=== PATIENT | female | born 1990 ===

== ENCOUNTER 2019-09-18 21:30 | Outpatient (CLI) | payer OTHER, MEDICAID ==
[~2019-09-18] VITALS: Ht 157.5 cm; Wt 79.3 kg
--- NOTE | 2019-09-18 21:40 | NUR ---
ABDIAZIZ EDWARDS presented to unit via ambulation from ED, accompanied by SO, with c/o CONTRACTIONS. ABDIAZIZ EDWARDS weighed, gowned, voided, and to bed. EFHM and TOCO applied, VS taken. ABDIAZIZ EDWARDS oriented to bed controls, call light, TV, heat, and A/C controls.
[2019-09-18 21:53] VITALS: BP 118/73
[2019-09-18 21:56] VITALS: BP 118/73
--- NOTE | 2019-09-18 22:47 | NUR ---
Dr. Mohr called and updated on pt's arrival and c/o contractions throughout day rating 6/10 on pain scale. Pt is able to talk with contractions. pt states was seen in clinic today and had sve by dr. mohr. No change with second exam by this RN. Pt cont to contract every 1-2min with some irritability noted. VSS, fhr pattern discussed as well. See flow sheet. Will cont to monitor for 30-45 more minutes and recheck.
[2019-09-18 23:00] VITALS: BP 121/74
[2019-09-18 23:05] LABS: BILIRUBIN,URINE NEGATIVE (NEGATIVE); CLARITY,URINE CLEAR; COLOR,URINE YELLOW; GLUCOSE, URINE (UA) NEGATIVE (NEGATIVE); KETONES,URINE TRACE (NEGATIVE); LEUKOCYTE ESTERASE ,URINE NEGATIVE (NEGATIVE); NITRITE,URINE NEGATIVE (NEGATIVE); PH,URINE 5.5 (5-9); PROTEIN,URINE NEGATIVE (NEGATIVE)
[2019-09-18 23:31] LABS: BACTERIA,URINE TRACE /HPF; SQUAMOUS EPITHELIAL CELL,UR 0-2 /HPF; WBC,URINE RARE /HPF
[2019-09-18 23:38] VITALS: BP 121/74
--- NOTE | 2019-09-18 23:43 | NUR ---
Discharge instructions read and reviewed with pt, pt verbalized understanding.
--- NOTE | 2019-09-18 23:50 | NUR ---
Pt ambulated off unit with s.o.
--- NOTE | 2019-09-19 07:51 | Physician Query-Final Dx ---
ALEXIS VALVERED 09/19/19 0751: Clinic Account Progress/Dx Physician Query: Please give diagnosis Please give # weeks gestation Date of Service Sep 18, 2019 at 21:30 CANDY DARLING MD 09/19/19 1739: Clinic Account Progress/Dx DIAGNOSIS: Diagnosis Contractions at term Third trimester 40 week gestation ALEXIS VALVERDE Sep 19, 2019 07:51 CANDY DARLING MD Sep 19, 2019 17:39
== END 2019-09-18 23:50 | disposition home or self-care (01) ==
LOC: WSo 21:30 → LDRP 21:30 → WSo 23:50
PROVIDERS: ATTEND Family Medicine
DX: O62.9 Abnormality of forces of labor, unspecified (principal); Z3A.40 40 weeks gestation of pregnancy
CPT/HCPCS: 81000; 87088; 99213

== ENCOUNTER 2019-09-19 03:13 | Inpatient (IN) | payer OTHER, MEDICAID ==
[~2019-09-19] VITALS: Ht 157.5 cm; Wt 79.3 kg
[2019-09-19] VITALS (35 sets, daily range): BP systolic 89–114; BP diastolic 50–69
--- NOTE | 2019-09-19 03:20 | NUR ---
ABDIAZIZ EDWARDS presented to unit via w/c from ED, accompanied by so, with c/o CONTRACTIONS,PRESSURE,FLUID LEAKAGE. ABDIAZIZ EDWARDS weighed, gowned, voided, and to bed. EFHM and TOCO applied, VS taken. ABDIAZIZ EDWARDS oriented to bed controls, call light, TV, heat, and A/C controls.
--- NOTE | 2019-09-19 03:28 | NUR ---
SVE 6 cm by Adelfo Ortiz RN, Dr Mohr called and pt made inpt.
[2019-09-19] MEDS ORDERED: D5 LR IV SOLUTION 1,000 ML IV SCH (03:33)
--- NOTE | 2019-09-19 03:43 | NUR ---
Sinan NOGUEIRA called with no answer, [phone] still no response, warehouse manager called and back up called in.
[2019-09-19] MEDS ORDERED: MINERAL OIL CONCENTRATE 99.9% 15 ML UDC TOP PRN (03:45)
[2019-09-19 03:50] LABS: BASOPHILS % (AUTO) 0 % (0-10); EOSINOPHILS % (AUTO) 0 % (0-10); HEMATOCRIT 40 % (35-52); HEMOGLOBIN 13.7 G/DL (11.5-16.0); LYMPHOCYTES # (AUTO) 2.6 X 10^3 (1.0-4.0); LYMPHOCYTES % (AUTO) 13 % (12-44); MEAN CORPUSCULAR HEMOGLOBIN 30 PG (25-34); MEAN CORPUSCULAR HGB CONC 34 G/DL (32-36); MEAN CORPUSCULAR VOLUME 88 FL (80-99); MEAN PLATELET VOLUME 11.9 FL (7.4-10.4); MONOCYTES # (AUTO) 0.9 X 10^3 (0.0-1.0); MONOCYTES % (AUTO) 5 % (0-12); NEUTROPHILS # (AUTO) 15.6 X 10^3 (1.8-7.8); NEUTROPHILS % (AUTO) 82 % (42-75); PLATELET COUNT 218 10^3/uL (130-400); RED CELL DISTRIBUTION WIDTH 13.8 % (10.0-14.5); WHITE BLOOD COUNT 19.1 10^3/uL (4.3-11.0)
[2019-09-19] MEDS ORDERED: OXYTOCIN/NORMAL SALINE 500 ML IV ONE ×2 (03:50→06:35)
[2019-09-19] MEDS ORDERED: SUFENTA 0.6MCG/ML BUPIVA 0.125 100 ML ONE (03:55)
[2019-09-19] MEDS ORDERED: BUPIVACAINE 0.25% 30 ML (SENSORCAINE) VIAL ONE (04:16)
[2019-09-19] MEDS ORDERED: fentaNYL INJECTION 100 MCG/2 ML AMP ONE (04:16)
--- NOTE | 2019-09-19 04:35 | History & Physical-OB ---
OB - Chief Complaint & HPI Date/Time Date of Admission: Date of Admission: Sep 19, 2019 at 03:30 Date seen by a Provider: Sep 19, 2019 Time Seen by a Provider: 04:29 Chief Complaint/History OB-Reason for Admission/Chief: Onset of Labor (ctxs started at 4 PM) Hx : 3 Hx Para: 1 Expected Date of Delivery: Sep 18, 2019 Gestational Age in Weeks: 40 Gestational Age in Days: 1 History of Labs Rub Imm HepB/RPR/HIV NR GC/Chyl GBS neg Allergies and Home Medications Allergies Coded Allergies: No Known Drug Allergies (Unverified , 09/18/19) Home Medications No Active Prescriptions or Reported Meds Patient Home Medication List Home Medication List Reviewed: Yes OB - History Hx of Present Care: Yes Ultrasounds: Normal mid trimester US Obstetrical Complications: None Medical Complications: None Obstetrical History Hx : 3 Hx Para: 1 Hx # Term Pregnancies: 1 Number of Living Children: 1 Hx Total # of Abortions (Spona: 1 Patient Past Medical History None Social History/Family History HIV/AIDS: No Recent Infectious Disease Expo: No Sexually Transmitted Disease: No Alcohol Use: Denies Use Recreational Drug Use: No Smoking Cessation: Never smoker 2nd Hand Smoke Exposure: No Immunizations Tetanus Booster (TDap): Less than 5yrs Date of Influenza Vaccine: Jun 18, 2019 Rubella: immune RPR/VDRL: Negative GBS Status: Negative HBsAG: Negative OB - Admission Exam Physical Exam Vitals: Vital Signs 09/19/19 09/19/19 03:49 03:50 Temp 36.6 Pulse 101 Resp 20 B/P (MAP) 113/64 (80) Pulse Ox 100 O2 Delivery Room Air HEENT: NCAT Heart: Rhythm Normal Lungs: Clear Abdomen: Gravid Cervical Dilatation: 6cm Effacement: 100% Membranes: Intact Accelerations: Accelerations Present Decelerations: No Decelerations Short Term Variability: Present Frequency of Contractions: 2-3 Intensity: Moderate Labs Laboratory Tests Test 09/19/19 03:35 Range/Units White Blood Count 19.1 H 4.3-11.0 10^3/uL Red Blood Count 4.54 4.35-5.85 10^6/uL Hemoglobin 13.7 11.5-16.0 G/DL Hematocrit 40 35-52 % Mean Corpuscular Volume 88 80-99 FL Mean Corpuscular Hemoglobin 30 25-34 PG Mean Corpuscular Hemoglobin Concent 34 32-36 G/DL Red Cell Distribution Width 13.8 10.0-14.5 % Platelet Count 218 130-400 10^3/uL Mean Platelet Volume 11.9 H 7.4-10.4 FL Neutrophils (%) (Auto) 82 H 42-75 % Lymphocytes (%) (Auto) 13 12-44 % Monocytes (%) (Auto) 5 0-12 % Eosinophils (%) (Auto) 0 0-10 % Basophils (%) (Auto) 0 0-10 % Neutrophils # (Auto) 15.6 H 1.8-7.8 X 10^3 Lymphocytes # (Auto) 2.6 1.0-4.0 X 10^3 Monocytes # (Auto) 0.9 0.0-1.0 X 10^3 Eosinophils # (Auto) 0.0 0.0-0.3 10^3/uL Basophils # (Auto) 0.0 0.0-0.1 10^3/uL OB - Assessment/Plan/Diagnosis Assessment Assessment: active labor Admission Dx Active Labor Term 40 week gestation Admission Status: Inpatient Order (span 2 midnights) Reason for Inpatient Admission: labor Plan Other Plan 29 yo @ 40.1 wga here for Active labor, ctxs started at 4pm Plan - Patient desires Epidural - AROM after Epidural - GBS Neg Copy Copies To 1: CANDY DARLING MD, HOLLY R MD Sep 19, 2019 04:34
[2019-09-19] MEDS ORDERED: LACTATED RINGERS 1,000 ML IV ONE (04:49)
[2019-09-19] MEDS ORDERED: NALOXONE 0.4 MG/ML 1 ML (NARCAN) VIAL IV PRN (05:00)
[2019-09-19] MEDS ORDERED: diphenhydrAMINE 50 MG/ML INJ (BENADRYL) IV PRN (05:00)
[2019-09-19] MEDS ORDERED: ONDANSETRON 4 MG/2 ML (SDV) Z0FRAN IV PRN (05:00)
[2019-09-19] MEDS ORDERED: CATHETER FLUSH 10 ML SYR IV PRN (05:00)
[2019-09-19] MEDS ORDERED: EPIDURAL (SUFENTA 0.6MCG/ML BUPIVA 0.125%) 100 ML BAG EPI SCH (05:00)
[2019-09-19] MEDS ORDERED: MINERAL OIL CONCENTRATE 99.9% 15 ML UDC ONE (05:03)
[2019-09-19] MEDS ORDERED: CATHETER FLUSH 10 ML SYR IV SCH ×2 (06:00→14:00)
--- NOTE | 2019-09-19 06:20 | NUR ---
repair completed, ffu/2 scant rubra noted, pericare given, pt back to bed and out of stirrups. s.o. remains at bedside.
--- NOTE | 2019-09-19 06:30 | NUR ---
ffu/2 scant rubra noted. pericare given.
--- NOTE | 2019-09-19 06:34 | OB Labor & Delivery Record ---
Vag Delivery Note Vag Delivery Note Date of Delivery: 09/19/19 Preoperative Diagnosis: Naomi Ortiz is a (29 /Para 3 / 1, Gestational Age (wks)40.1 here in active labor Postoperative Diagnosis: Same Surgeon: CANDY DARLING Tire Trucker: None Anesthesia: Epidural Delivery Type: 0604 Findings: Viable female infant, apgars 8/9, weight 6#15, 3140 Lacerations: 1st degree laceration Intact placenta with 3 vessel cord. No nuchal cord, body cord or shoulder dystocia Small placenta with meconium staining Estimated Blood Loss: 100 ml Complications: None Condition: Stable Description of Procedure: The patient is a 29 year old female who presented in active labor. She was admitted and informed consent was obtained. Her labor course was remarkable for meconium fluid. She progressed to complete dilatation and began to push. She was then set up for delivery. The 's head was delivered atraumatically in the ROSIE position. The shoulders and remainder of the 's body were then delivered without difficulty. Upon delivery, the head was held below the level of the perineum and the mouth and nares were bulb suctioned. The cord was doubly clamped and cut by FOB and the was attended to on maternal abdomen by the pediatric staff. An intact placenta with 3-vessel cord delivered via Deandre and there was found to be minimal bleeding.~ Vigorous fundal massage was performed and the fundus was found to be firm. IV oxytocin was given. Examination of the vagina and perineum revealed a 1st degree laceration repaired in the usual fashion with 3-0 Reped suture. Following the repair, sponge, instrument and needle counts were correct. Mom and baby were both in stable condition in the labor suite. Vitals - Labs Vital Signs - I&O Vital Signs Date Time Temp Pulse Resp B/P (MAP) Pulse Ox O2 Delivery O2 Flow Rate FiO2 09/19/19 05:07 90 18 99/62 (74) 99 09/19/19 05:00 82 18 99/61 (74) 99 09/19/19 04:58 80 18 99/58 (72) 99 09/19/19 04:55 88 18 108/63 (78) 99 09/19/19 04:50 88 18 100/63 (75) 99 09/19/19 04:47 93 18 104/60 (75) 99 09/19/19 04:45 89 18 103/60 (74) 99 09/19/19 04:40 85 18 100/66 (77) 98 09/19/19 04:37 83 18 106/68 (81) 98 09/19/19 04:34 87 18 103/66 (78) 98 09/19/19 04:30 78 18 107/66 (80) 98 09/19/19 04:23 96 18 104/64 (77) 97 09/19/19 04:20 85 18 112/69 (83) 09/19/19 03:50 36.6 101 20 100 Room Air 09/19/19 03:49 36.6 101 20 113/64 (80) Room Air 09/19/19 03:30 36.6 101 20 113/64 (80) Room Air 09/19/19 03:22 36.6 101 20 Room Air Labs Laboratory Tests 09/19/19 03:35: White Blood Count 19.1H, Red Blood Count 4.54, Hemoglobin 13.7, Hematocrit 40, Mean Corpuscular Volume 88, Mean Corpuscular Hemoglobin 30, Mean Corpuscular Hemoglobin Concent 34, Red Cell Distribution Width 13.8, Platelet Count 218, Mean Platelet Volume 11.9H, Neutrophils (%) (Auto) 82H, Lymphocytes (%) (Auto) 13, Monocytes (%) (Auto) 5, Eosinophils (%) (Auto) 0, Basophils (%) (Auto) 0, Neutrophils # (Auto) 15.6H, Lymphocytes # (Auto) 2.6, Monocytes # (Auto) 0.9, Eosinophils # (Auto) 0.0, Basophils # (Auto) 0.0 CANDY DARLING MD Sep 19, 2019 06:34
[2019-09-19] MEDS ORDERED: OXYTOCIN/NORMAL SALINE 500 ML IV SCH (06:35)
[2019-09-19] MEDS ORDERED: WITCH HAZEL(TUCKS) 40 EA JAR TOP PRN (06:45)
[2019-09-19] MEDS ORDERED: MEASLES,MUMPS,RUBELLA 1 EA INJ SQ ONE (06:45)
[2019-09-19] MEDS ORDERED: BENZOCAINE/MENTHOL (DERMOPLAST) 56 ML CAN TP PRN (06:45)
--- NOTE | 2019-09-19 06:45 | NUR ---
FF u/2 small lochia jodie noted, plan of care reviewed with pt. pt able to move both legs will cont to assess before transferring to pp room.
--- NOTE | 2019-09-19 07:00 | NUR ---
ffu/2 scant rubra noted, pt holding infant.
--- NOTE | 2019-09-19 07:15 | NUR ---
FF u/2 moderate lochia rubra noted. pt denies pain, s.o. remains at bedside.
--- NOTE | 2019-09-19 07:30 | NUR ---
PERICARE WITH PAD CHANGE. FF U/1. VAG FLOW LT/MOD RUBRA. BLADDER FILLING.
--- NOTE | 2019-09-19 07:35 | NUR ---
EPIDURAL CATHETER D/C'ED. SITE CLEAR. DENIES ANY PAIN. MOVING LEGS WELL. IV TO SALINE LOCK. SITE CLEAR.
--- NOTE | 2019-09-19 07:50 | NUR ---
NURSERY RN IN TO ASSIST PT WITH .
--- NOTE | 2019-09-19 08:24 | NUR ---
UP TO THE BATHROOM. LARGE VOID. MARIO CARE PERFORMED WITH PAD AND UNDERWEAR APPLIED. DERMA PLAST AND TUCKS APPLIED. AMBULATED WITHOUT PROBLEMS AND ABLE TO BEAR WEIGHT WITHOUT PROBLEMS.
--- NOTE | 2019-09-19 09:30 | NUR ---
TRANSFERRED TO ROOM 309 VIA W/C IN STABLE CONDITION. SECOND RN PUSHING CRIB AND SPOUSE BRINGING BELONGINGS. ORIENTED TO SURROUNDINGS, CALL LIGHT OPERATION, BED CONTROLS, INFORMATION PAPERS, AND DIET/MENU PROCEDURE.
--- NOTE | 2019-09-19 10:00 | NUR ---
FF U/1. VAG FLOW LT/MOD RUBRA.
--- NOTE | 2019-09-19 11:00 | NUR ---
CONTINUES TO CARE FOR IN ROOM. GOOD INTERACTION NOTED.
[2019-09-19] MEDS: IBUPROFEN 600 MG (MOTRIN) TAB PO SCH ×2 (11:34→18:24)
[2019-09-19] MEDS: DOCUSATE SODIUM 100 MG (COLACE) CAP PO SCH (11:34)
--- NOTE | 2019-09-19 11:35 | NUR ---
ASSISTED WITH LATCH. PT C/O CRAMPING. MOTRIN GIVEN. SPOUSE AT BEDSIDE. UP TO THE BATHROOM. + VOID. AMBULATING WITHOUT PROBLEMS. FF U/1. VAG FLOW LT/MOD RUBRA.
[2019-09-19] MEDS: ACETAMINOPHEN 500 MG TAB (TYLENOL) PO SCH (13:42)
--- NOTE | 2019-09-19 13:50 | NUR ---
IV D/C'E. SITE CLEAR.
--- NOTE | 2019-09-19 14:00 | NUR ---
INFANT TO NURSERY FRO BATH. PT UP TO GET HER SHOWER.
--- NOTE | 2019-09-19 15:50 | NUR ---
DENIES ANY PAIN AT THIS TIME.
--- NOTE | 2019-09-19 18:15 | NUR ---
EATING DINNER. LOTS OF VISITORS AT BEDSIDE.
[2019-09-20 00:40] VITALS: BP 107/60
[2019-09-20] MEDS: IBUPROFEN 600 MG (MOTRIN) TAB PO SCH ×3 (00:40→13:24)
[2019-09-20] MEDS: DOCUSATE SODIUM 100 MG (COLACE) CAP PO SCH ×2 (00:40→09:03)
[2019-09-20 05:32] LABS: BASOPHILS % (AUTO) 0 % (0-10); EOSINOPHILS # (AUTO) 0.1 10^3/uL (0.0-0.3); EOSINOPHILS % (AUTO) 1 % (0-10); HEMATOCRIT 35 % (35-52); HEMOGLOBIN 11.8 G/DL (11.5-16.0); LYMPHOCYTES # (AUTO) 3.5 X 10^3 (1.0-4.0); LYMPHOCYTES % (AUTO) 23 % (12-44); MEAN CORPUSCULAR HEMOGLOBIN 31 PG (25-34); MEAN CORPUSCULAR HGB CONC 34 G/DL (32-36); MEAN CORPUSCULAR VOLUME 91 FL (80-99); MEAN PLATELET VOLUME 12.1 FL (7.4-10.4); MONOCYTES % (AUTO) 7 % (0-12); NEUTROPHILS # (AUTO) 10.4 X 10^3 (1.8-7.8); NEUTROPHILS % (AUTO) 69 % (42-75); PLATELET COUNT 183 10^3/uL (130-400); RED CELL DISTRIBUTION WIDTH 13.8 % (10.0-14.5)
[2019-09-20 05:44] VITALS: BP 103/54
[2019-09-20] MEDS: ACETAMINOPHEN 500 MG TAB (TYLENOL) PO SCH (09:03)
[2019-09-20 09:05] VITALS: BP 104/59
--- NOTE | 2019-09-20 09:05 | NUR ---
initial shift assessment completed, see interventions for further.
--- NOTE | 2019-09-20 10:10 | NUR ---
initial shift assessment completed, see interventions for further. POC reviewed. Addendum: 09/20/19 at 1356 by RG HART RN error- here. dismissal orders received.
--- NOTE | 2019-09-20 10:10 | NUR ---
dismissal instructions given, verbalizes understanding. reviewed follow up appointment and dismissal medications. signature page signed, placed on chart. Addendum: 09/20/19 at 1355 by RG HART RN error- wrong time. correct entry time is 1327.
[2019-09-20] MEDS ORDERED: PREN-142 PO ×2 (10:14)
[2019-09-20] MEDS ORDERED: IBUP-844 PO ×2 (10:14)
--- NOTE | 2019-09-20 10:15 | Discharge Instructions ---
Discharge Inst-Women's Serv Depart Medications New, Converted or Re-Newed RX: Transmitted to Pharmacy New Medications: Vit No.124/Iron/FA ( Vitamin Tablet) 1 Each Tablet 1 EACH PO DAILY, #30 TAB 11 Refills Ibuprofen (Ibu) 600 Mg Tablet 600 MG PO Q6HR PRN for PAIN-MODERATE (5-7), #60 TAB 0 Refills Follow Up/Instructions Goal/Follow Up: Follow up with Dr. Mohr in 6 weeks for visit. Activity Activity: Activity as Tolerated (avoid strenuous activity x 2 weeks) Driving Instructions: You May Drive NO SMOKING: NO SMOKING Nothing Inside Vagina: No Douching, No Portis, No Tampons Diet Discharge Diet: Regular Diet Symptoms to Report to : Swelling Increased, Bleeding Excessive, Fever Over 101 Degrees F, Pain/Pressure in Chest, Cramps in Feet or Legs, Vaginal Discharge Foul, Dizziness/Fainting, Shortness of Breath For Any Problems or Questions: Contact Your Physician Copies To 1: CANDY MOHR MD, BETHANY N MD Sep 20, 2019 10:15
--- NOTE | 2019-09-20 10:16 | Discharge Summary ---
Discharge Summary Hospital Course Hospital Course Date of Admission: Sep 19, 2019 at 03:30 Admission Diagnosis : Family Physician/Provider: [facility] Date of Discharge: 09/20/19 Discharge Diagnosis: s/p spontaneous vaginal delivery Hospital Course: Unremarkable labor, delivery and course with no anemia. Labs and Pending Lab Test: Laboratory Tests 09/20/19 05:03: White Blood Count 15.0H, Red Blood Count 3.87L, Hemoglobin 11.8, Hematocrit 35, Mean Corpuscular Volume 91, Mean Corpuscular Hemoglobin 31, Mean Corpuscular Hemoglobin Concent 34, Red Cell Distribution Width 13.8, Platelet Count 183, Mean Platelet Volume 12.1H, Neutrophils (%) (Auto) 69, Lymphocytes (%) (Auto) 23, Monocytes (%) (Auto) 7, Eosinophils (%) (Auto) 1, Basophils (%) (Auto) 0, Neutrophils # (Auto) 10.4H, Lymphocytes # (Auto) 3.5, Monocytes # (Auto) 1.0, Eosinophils # (Auto) 0.1, Basophils # (Auto) 0.0 Home Meds Active Ibu (Ibuprofen) 600 Mg Tablet 600 Mg PO Q6HR PRN Vitamin Tablet ( Vit No.124/Iron/FA) 1 Each Tablet 1 Each PO DAILY Assessment/Pt DC Instructions See hospital course Discharge Physical Examination Allergies: Coded Allergies: No Known Drug Allergies (Unverified , 09/18/19) General Appearance: No Apparent Distress, WD/WN Respiratory: Lungs Clear, Normal Breath Sounds Cardiovascular: Regular Rate, Rhythm, No Murmur Extremity: No Pedal Edema Copy Copies To 1: CANDY DARLING MD Clinical Quality Measures DVT/VTE Risk/Contraindication: Risk Factor Score Per Nursin RFS Level Per Nursing on Admit: 1=Low/No VTE PPX DOTTIE KINNEY MD Sep 20, 2019 10:16
--- NOTE | 2019-09-20 12:34 | Anesthesia-Regional Post-Op ---
Regional Patient Condition Mental Status: Alert, Oriented x3 Circulation: Same as Pre-Op Headache: Absent Sensation: Full Recovery Motor Block: Absent Post Op Complications Complications None Follow Up Care/Instructions Patient Instructions None needed. Anesthesia/Patient Condition Patient is doing well, no complaints, stable vital signs, no apparent adverse anesthesia problems. No complications reported per nursing. ADRIEN COLEY CRNA Sep 20, 2019 12:34
--- NOTE | 2019-09-20 13:27 | NUR ---
dismissal instructions given. verbalizes understanding. reviewed follow up appointments and dismissal Rx's. signature page signed, placed on chart.
--- NOTE | 2019-09-20 15:20 | NUR ---
pt ambulated to private vehicle with this RN, and family members @ side. secured in rear facing car seat. pt stable with no sx's of distress noted.
== END 2019-09-20 15:20 | disposition home or self-care (01) | DRG 807 ==
LOC: WSo 03:13 → LDRP 03:14 → WSo 03:30 → LDRP 09:30
PROVIDERS: ADMIT Family Medicine; ATTEND Family Medicine
PROC: 10E0XZZ Delivery of Products of Conception, External Approach (ICD-10-PCS; principal; 2019-09-19)
PROC: 0HQ9XZZ Repair Perineum Skin, External Approach (ICD-10-PCS; 2019-09-19)
DX: O77.0 Labor and delivery complicated by meconium in amniotic fluid (principal); O70.0 First degree perineal laceration during delivery; Z3A.40 40 weeks gestation of pregnancy; Z37.0 Single live birth
CPT/HCPCS: 36415; 85025; 86850; 86900; 86901